=== PATIENT | female | born 1970 | race Caucasian/White ===

== ENCOUNTER → 2021-07-15 | Outpatient (CLI) | payer BC ==
[~2021-07-15] MED LIST: CYCLOBENZAPRINE10 MG PO; FOLIC ACID1 MG PO; LOVENOX SY40 MG/0.4 SQ; TOPAMAX100 MG PO; VITAMIN D21250 MCG PO; WARFARIN SODIUM3 MG PO; WARFARIN SODIUM5 MG PO
[2021-07-15 13:23] LABS: HEMOGLOBIN 16.1 gm/dl (12.3-15.3); RED BLOOD COUNT 4.86 M/UL (4.00-5.10); WHITE BLOOD COUNT 7.4 K/UL (4.5-11.0)
== END ==
LOC: OPSV2 12:30
PROVIDERS: Obstetrics & Gynecology
DX: Z01.812 Encounter for preprocedural laboratory examination (principal); N93.9 Abnormal uterine and vaginal bleeding, unspecified
CPT/HCPCS: 36415; 81001; 85025

== ENCOUNTER → 2021-07-20 | Day surgery (SDC) | payer BC ==
[~2021-07-20] MED LIST changes: +DOCUSATE SODIU100 MG PO; +HYDROCODON-ACE1 EAC4 PO
== END | disposition home or self-care (01) ==
LOC: OR 05:36
DX: N93.9 Abnormal uterine and vaginal bleeding, unspecified (principal); N92.1 Excessive and frequent menstruation with irregular cycle; G40.909 Epilepsy, unspecified, not intractable, without status epilepticus; D68.51 Activated protein C resistance; F17.210 Nicotine dependence, cigarettes, uncomplicated; Z86.718 Personal history of other venous thrombosis and embolism; Z79.01 Long term (current) use of anticoagulants; Z79.899 Other long term (current) drug therapy; Z20.822 Contact with and (suspected) exposure to COVID-19
CPT/HCPCS: 84703; 93005; J1100; J2001; J2250; J2405; J2704; J2795; J3010; J7030; J7120; U0002